=== PATIENT | male | born 1970 | race Hispanic/Latino ===

== ENCOUNTER 2020-11-13 02:01 | Inpatient (IN) | payer OTHER ==
[2020-11-13] MEDS ORDERED: Morphine 4 MG/ML VIAL ONE ×2 (02:30→04:50)
[2020-11-13] MEDS ORDERED: Ondansetron PF 4 MG/2 ML Vial ONE ×2 (02:31→04:50)
[2020-11-13 02:41] LABS: #Eosinphils 0.1 10x3/uL (0.0-0.5); #Monocytes 0.7 10x3/uL (0.0-1.1); #Neutrophils 6.4 10x3/uL (1.5-8.4); %Basophils 0.2 % (0.0-2.0); %Eosinophils 1.3 % (0.0-6.0); %Lymphocytes 15.3 % (18.0-47.0); %Monocytes 8.2 % (0.0-10.0); %Neutrophils 74.8 % (40.0-75.0); Hemoglobin 13.8 g/dL (13.5-17.5); Mean Corpuscular HGB CONC 34.9 g/dL (32.0-36.0); Mean Corpuscular Hemoglobin 33.8 pg (27.0-33.0); Mean Corpuscular Volume 96.8 fl (81.2-95.1); Mean Platelet Volume 9.5 fl (7.4-10.4); Platelet Count 191 10x3/uL (150-450); RBC Distribution Width 12.5 % (11.5-14.5); Red Blood Cell (RBC) Count 4.08 10x6/uL (4.32-5.72); White Blood Cell (WBC) Count 8.6 10x3/uL (3.5-10.5)
[2020-11-13 02:49] LABS: ALT (SGPT) 41 U/L (8-55); AST (SGOT) 39 U/L (5-34); Albumin 4.1 g/dL (3.5-5.0); Alkaline Phosphatase 117 U/L (40-110); Anion Gap 17 mmol/L (10-20); BUN (Urea Nitrogen) 16 mg/dL (8.4-25.7); Bilirubin, Total 0.9 mg/dL (0.2-1.2); Calc. Creatinine Clearance 0 mL/min (70-130); Calcium 9.5 mg/dL (7.8-10.44); Carbon Dioxide 21 mmol/L (22-29); Chloride 99 mmol/L (98-107); Globulin 3.3 g/dL (2.4-3.5); Glucose 244 mg/dL (70-105); Lipase 331 U/L (8-78); Potassium 4.3 mmol/L (3.5-5.1); Protein, Total 7.4 g/dL (6.0-8.3); Sodium 133 mmol/L (136-145)
[2020-11-13] MEDS ORDERED: Calcium Carbonate 500 MG ChewTAB PO PRN (04:52)
[2020-11-13] MEDS ORDERED: Senokot S 8.6-50 MG TAB PO PRN (04:52)
[2020-11-13] MEDS ORDERED: Dextrose 5% in Water 1,000 ML IV PRN ×2 (04:52→15:03)
[2020-11-13] MEDS ORDERED: Acetaminophen 325 MG TAB PO PRN (04:52)
[2020-11-13] MEDS ORDERED: Dextrose 50% Abboject 50 ML SYRINGE SLOW IVP PRN ×2 (04:52→15:03)
[2020-11-13] MEDS ORDERED: Zolpidem Tartrate 5 MG TAB PO PRN (04:52)
[2020-11-13] MEDS ORDERED: Sodium Chloride 0.9% 1,000 ML IV SCH (05:15)
[2020-11-13 05:40] VITALS: BMI 33.5
[2020-11-13] MEDS: Sodium Chloride 0.9% 1,000 ML IV SCH ×3 (06:07→18:13)
[2020-11-13] MEDS: Thiamine HCl 200 MG/2 ML VIAL SLOW IVP SCH (06:22)
[2020-11-13] MEDS: Multivitamin W/ Minerals 1 TAB PO SCH (09:33)
[2020-11-13] MEDS: hydrALAZINE 25 MG TAB PO SCH ×3 (09:33→20:42)
[2020-11-13] MEDS: Folic Acid 1 MG TAB PO SCH (09:33)
[2020-11-13] MEDS: chlordiazePOXIDE HCl 5 MG CAP PO SCH ×3 (09:33→20:43)
[2020-11-13] MEDS: Losartan 25 MG TAB PO SCH (09:33)
[2020-11-13] MEDS: Famotidine/PF 20 mg/2ml Vial SLOW IVP SCH ×2 (09:34→20:42)
[2020-11-13] MEDS: Enoxaparin Sodium 40 MG/0.4 ML SYRINGE SC SCH (09:34)
[2020-11-13] MEDS: Morphine 2 MG/ML VIAL SLOW IVP PRN ×2 (09:34→16:16)
[2020-11-13] MEDS: Ondansetron PF 4 MG/2 ML Vial IVP PRN ×3 (09:34→22:05)
[2020-11-13 13:45] LABS: SARS-CoV-2 PCR by NAA Not Detected (NotDetected)
[2020-11-13] MEDS ORDERED: HumaLOG 300 UNITS/3 ML VIAL SC PRN (15:03)
[2020-11-13] MEDS: Morphine 4 MG/ML VIAL SLOW IVP PRN (20:46)
[2020-11-14] MEDS: Morphine 4 MG/ML VIAL SLOW IVP PRN ×3 (01:05→13:45)
[2020-11-14] MEDS: Sodium Chloride 0.9% 1,000 ML IV SCH (04:06)
[2020-11-14 04:07] LABS: #Eosinphils 0.1 10x3/uL (0.0-0.5); #Monocytes 0.7 10x3/uL (0.0-1.1); #Neutrophils 5.7 10x3/uL (1.5-8.4); %Basophils 0.5 % (0.0-2.0); %Eosinophils 1.5 % (0.0-6.0); %Lymphocytes 15.9 % (18.0-47.0); %Monocytes 8.9 % (0.0-10.0); %Neutrophils 73.1 % (40.0-75.0); Hemoglobin 12.6 g/dL (13.5-17.5); Mean Corpuscular HGB CONC 34.1 g/dL (32.0-36.0); Mean Corpuscular Volume 99.7 fl (81.2-95.1); Mean Platelet Volume 9.1 fl (7.4-10.4); Platelet Count 166 10x3/uL (150-450); RBC Distribution Width 12.5 % (11.5-14.5); Red Blood Cell (RBC) Count 3.71 10x6/uL (4.32-5.72); White Blood Cell (WBC) Count 7.8 10x3/uL (3.5-10.5)
[2020-11-14 04:22] LABS: ALT (SGPT) 31 U/L (8-55); AST (SGOT) 29 U/L (5-34); Albumin 3.4 g/dL (3.5-5.0); Alkaline Phosphatase 92 U/L (40-110); Anion Gap 17 mmol/L (10-20); BUN (Urea Nitrogen) 13 mg/dL (8.4-25.7); Bilirubin, Total 0.6 mg/dL (0.2-1.2); Calc. Creatinine Clearance 115 mL/min (70-130); Calcium 8.3 mg/dL (7.8-10.44); Carbon Dioxide 18 mmol/L (22-29); Chloride 102 mmol/L (98-107); Cholesterol 148 mg/dl (< 200 Desired); Glucose 112 mg/dL (70-105); HDL Cholesterol 49 mg/dL (>60 Neg Risk); LDL Cholesterol, Calculated 73 mg/dL; Lipase 54 U/L (8-78); Potassium 4.1 mmol/L (3.5-5.1); Protein, Total 6.4 g/dL (6.0-8.3); Sodium 133 mmol/L (136-145); Triglycerides 130 mg/dL (Less than 150)
[2020-11-14] MEDS: Thiamine HCl 200 MG/2 ML VIAL SLOW IVP SCH (05:24)
[2020-11-14] MEDS: Ondansetron PF 4 MG/2 ML Vial IVP PRN ×2 (06:41→13:45)
[2020-11-14] MEDS: hydrALAZINE 25 MG TAB PO SCH (09:29)
[2020-11-14] MEDS: chlordiazePOXIDE HCl 5 MG CAP PO SCH (09:29)
[2020-11-14] MEDS: Folic Acid 1 MG TAB PO SCH (09:29)
[2020-11-14] MEDS: Multivitamin W/ Minerals 1 TAB PO SCH (09:29)
[2020-11-14] MEDS: Famotidine/PF 20 mg/2ml Vial SLOW IVP SCH (09:30)
[2020-11-14] MEDS: Enoxaparin Sodium 40 MG/0.4 ML SYRINGE SC SCH (09:30)
[2020-11-14] MEDS: Losartan 25 MG TAB PO SCH (09:31)
[2020-11-14 16:25] VITALS: BP 139/79; TEMP 98.6
== END 2020-11-14 16:40 | disposition home or self-care (01) | DRG 439 ==
LOC: CSHERS 02:01 → CSHTELE 05:30
PROVIDERS: ADMIT Student in an Organized Health Care Education/Training Program; ATTEND Family Medicine
DX: K85.20 Alcohol induced acute pancreatitis without necrosis or infection (principal); F10.139 Alcohol abuse with withdrawal, unspecified; E87.1 Hypo-osmolality and hyponatremia; I12.9 Hypertensive chronic kidney disease with stage 1 through stage 4 chronic kidney disease, or unspecified chronic kidney disease; E11.22 Type 2 diabetes mellitus with diabetic chronic kidney disease; E86.0 Dehydration; E11.65 Type 2 diabetes mellitus with hyperglycemia; N18.31 Chronic kidney disease, stage 3a; Z20.822 Contact with and (suspected) exposure to COVID-19
CPT/HCPCS: 36415; 36416; 74177; 80053; 80061; 83605; 83690; 84484; 85025; 87635; 93005; 96374; 96375; 96376; J1650; J2270; J2405; J3411; S0028; U0003; U0005

== ENCOUNTER 2022-05-20 08:37 | Emergency (ER) | payer BC ==
[2022-05-20] MEDS ORDERED: HYDROcodone/Acetaminophen 5/325 mg Tablet ONE (10:34)
[2022-05-20] MEDS ORDERED: Cyclobenzaprine 10 MG TAB ONE (10:34)
[2022-05-20] MEDS ORDERED: Ketorolac Tromethamine 30 MG/ML VIAL ONE (10:34)
== END 2022-05-20 11:47 | disposition home or self-care (01) ==
LOC: CSHERS 08:37
DX: S20.211A Contusion of right front wall of thorax, initial encounter (principal); I10 Essential (primary) hypertension; E11.9 Type 2 diabetes mellitus without complications; W19.XXXA Unspecified fall, initial encounter
CPT/HCPCS: 71045; 72072; 96372; J1885

== ENCOUNTER 2022-08-06 03:59 | Emergency (ER) | payer BC ==
[2022-08-06] MEDS ORDERED: Ketorolac Tromethamine 30 MG/ML VIAL ONE (04:36)
[2022-08-06] MEDS ORDERED: Orphenadrine Citrate 60 MG/2 ML VIAL IM SCH (04:45)
== END 2022-08-06 06:51 | disposition home or self-care (01) ==
LOC: CSHERS 03:59
DX: S22.42XA Multiple fractures of ribs, left side, initial encounter for closed fracture (principal); I10 Essential (primary) hypertension; E11.9 Type 2 diabetes mellitus without complications; W11.XXXA Fall on and from ladder, initial encounter; Z79.899 Other long term (current) drug therapy
CPT/HCPCS: 71250; 96372; J1885; J2360